=== PATIENT | male | born 1945 | race Caucasian/White ===

== ENCOUNTER → 2024-03-02 08:50 | Outpatient (REF) | payer MEDICARE, OTHER, SELFPAY ==
[2024-03-02 10:09] LABS: Urine Albumin Negative (Neg - Trace); Urine Bilirubin Negative (Negative); Urine Character Clear (Clear); Urine Color Yellow; Urine Glucose Negative (Negative); Urine Ketone 1+ (Negative); Urine Leukocyte Trace (Negative); Urine Nitrite Negative (Negative); Urine Occult Blood Negative (Negative); Urine Urobilinogen Negative (Neg - 1+)
[2024-03-02 10:13] LABS: % Immature Granulocytes 0.3 % (0-0.5); % Lymphocytes 21.2 % (20.5-51.1); % Monocytes 11.7 % (1.7-9.3); % Neutrophils 60.8 % (42.2-75.2); Absolute Basophils 0.1 10^3/uL (0-0.2); Absolute Eosinophils 0.3 10^3/uL (0-0.7); Absolute Lymphocytes 1.3 10^3/uL (1.2-3.4); Absolute Monocytes 0.7 10^3/uL (0.1-0.6); Absolute Neutrophils 3.7 10^3/uL (1.4-6.5); Hematocrit 42.8 % (39.0-52.0); Hemoglobin 15.1 g/dL (13.0-18.0); Mean Corp Hgb Conc. 35.3 g/dL (33.0-37.0); Mean Corpuscular Hgb 32.3 pg (27.0-31.0); Mean Corpuscular Volume 91.5 fL (80.0-94.0); Mean Platelet Volume 10.4 fL (7.4-10.4); Nucleated Red Blood Cells % 0 % (-); Platelet Count 195 10^3/uL (130-400); Red Blood Cell Count 4.68 10^6/uL (4.70-6.10); Red Cell Dist. Width 13.7 % (11.5-14.5)
[2024-03-02 10:42] LABS: ALT (SGPT) 14 U/L (0-50); AST (SGOT) 24 U/L (17-59); Albumin 4.3 g/dl (3.5-5.0); Alkaline Phosphatase 95 U/L (38-126); Blood Urea Nitrogen 17 mg/dl (9-20); Calcium 9.4 mg/dl (8.4-10.2); Carbon Dioxide 26 mmol/L (22-30); Chloride 107 mmol/L (98-107); Glucose 80 mg/dl (70-99); HDL Cholesterol 66 mg/dl; LDL Cholesterol, Calculated 87 mg/dl; Potassium 4.1 mmol/L (3.5-5.1); Sodium 142 mmol/L (135-145); Total Bilirubin 0.6 mg/dl (0.2-1.3); Total Cholesterol 166 mg/dl (50-199); Total Protein 7.1 g/dl (6.3-8.2); Triglyceride 69 mg/dl (10-149); Very Low Density Lipoprotein 13 mg/dl (0-30); eGFR > 60.00
[2024-03-02 11:07] LABS: Urine Mucus Many
[2024-03-02 11:10] LABS: Urine Amorphous Seen; Urine Red Blood Cell 0-2 /HPF (0-2); Urine Squamous Cell 0-2 /LPF (Few)
[2024-03-03 17:36] LABS: PSA Total 14.1 ng/mL (0.0-4.0)
== END ==
LOC: REG 08:50
PROVIDERS: ATTENDING PHYSICIAN Internal Medicine
DX: I10 Essential (primary) hypertension (principal); Z86.010 Personal history of colon polyps; N40.0 Benign prostatic hyperplasia without lower urinary tract symptoms; M15.9 Polyosteoarthritis, unspecified; M51.36 Other intervertebral disc degeneration, lumbar region
CPT/HCPCS: 36415; 80053; 80061; 81003; 81015; 84153; 84154; 85025

== ENCOUNTER 2025-08-16 01:58 | Inpatient (IN) | payer MEDICARE, OTHER, SELFPAY ==
[2025-08-15 19:02] VITALS: BP 110/82
[2025-08-15 19:22] LABS: Hematocrit 37.2 % (39.0-52.0); Hemoglobin 12.4 g/dL (13.0-18.0); Mean Corp Hgb Conc. 33.3 g/dL (33.0-37.0); Mean Corpuscular Volume 94.7 fL (80.0-94.0); Nucleated Red Blood Cells % 0 % (-); Platelet Count 252 10^3/uL (130-400); Red Cell Dist. Width 16.2 % (11.5-14.5)
[2025-08-15 19:43] LABS: ALT (SGPT) 16 U/L (0-50); AST (SGOT) 84 U/L (17-59); Albumin 4.1 g/dl (3.5-5.0); Alkaline Phosphatase 931 U/L (38-126); Blood Urea Nitrogen 19 mg/dl (9-20); Calcium 9.4 mg/dl (8.4-10.2); Carbon Dioxide 26 mmol/L (22-30); Chloride 102 mmol/L (98-107); Glucose 108 mg/dl (70-99); Potassium 4.3 mmol/L (3.5-5.1); Sodium 133 mmol/L (135-145); Total Protein 6.9 g/dl (6.3-8.2); eGFR > 60.00
[2025-08-15 19:55] LABS: Troponin I 0.021 ng/ml
[2025-08-15 22:11] VITALS: BMI 23.1
[2025-08-15 22:30] VITALS: BP 136/90
[2025-08-15 22:59] LABS: Magnesium 1.8 mg/dl (1.6-2.3)
[2025-08-15 23:00] VITALS: BP 168/78
--- NOTE | 2025-08-15 23:02 | ED.GENMED ---
History of Present Illness
General
Chief Complaint: Chest Pain
Source: patient and family (Sister at bedside)
Exam Limitations: none
Time Seen by Provider: 08/15/25 22:39
Nursing documentation reviewed up to this point in time: agreed with
History of Present Illness
History of Present Illness:
HISTORY OF PRESENT ILLNESS
The patient is an 80-year-old male with a history of prostate cancer diagnosed last year. Initially restricted to the prostate, the cancer has metastasized to the bones over the past four months, as confirmed by a PET scan. He started a new
medication, Orgovyx, about a month ago. The patient reported persistent shortness of breath that has been unchanged over the past few weeks, progressing on exertion. He also notes lower substernal chest pain that began a week ago, progressive and
much more persistent since yesterday. He reported low back pain that he associates with the cancer and describes it as diffuse. He has also experienced episodes of dizziness, particularly noticeable when climbing stairs, and reported a recent
instance of lightheadedness. There are no palpitations or history of atrial fibrillation before this visit. An EKG was performed, revealing the presence of atrial fibrillation with rapid ventricular response 110. The patient also mentioned a driving
trip to [place] and back (approximately [address]) recently, with no reported leg pain or swelling. He travels back and forth to [place] twice weekly. Works here locally 4 days a week then returns home to [place] every for the
weekend.
He follows with a cancer specialist in [facility].
He underwent local radiation treatments to his prostate last year.
He has history of hypertension, maintained on losartan/HCTZ 50/12.5, recently decreased to 1/2 tablet daily. He is also maintained on amlodipine metoprolol succinate 100 mg daily. Once daily, he believes 5 mg. He takes tramadol as needed for back
pain.
He has been chewing caffeinated gum this past week in an effort to improve his fatigue. Thus far has been ineffective.
He has not had a cough. No fevers or chills. No abdominal pain, no nausea or vomiting, no diarrhea or constipation.
Past History
Past History
ED Past Medical History: Cancer (Prostate cancer, diagnosed 2023, metastatic to bone since April 2025 prostate cancer treated with 28 days of local radiation), GERD and HTN
ED Past Surgical History: Orthopedic (Bilateral knee replacements) and Tonsilectomy
Social History
Tobacco: Non-smoker
Alcohol: None
Drug: None
Personal:
Living: alone
Employment: Employed (Continues to work part-time)
Family History
Family History: Other (Noncontributory)
Phy Exam
Physical Exam
Physical Exam:
GENERAL: 80-year-old gentleman appears his stated age, bright and alert, pleasant, quite chatty, amicable and appears in no acute distress. He is accompanied by his sister.
EYE: pupils equal and reactive
NECK: Supple, no significant adenopathy.
ENT: o/p clr, mmm.
CARDIAC: Irregularly irregular, tachycardic
LUNGS: no acute respiratory distress, scant rales at bases otherwise clear to auscultation.
ABDOMEN: Soft, without focal tenderness, no r/g, no cvat
NEUROLOGICAL: Alert and oriented, no focal neuro deficits
SKIN: Warm and dry, skin intact.
MUSCULOSKELETAL: No edema, well perfused.
PSYCH: Normal and appropriate interaction.
Scores
Heart Score for Chest Pain Patients
STEMI patient?: No
History: Slightly or Non-Suspicious
ECG: Nonspecific Repolarization
Age: >/= 65 years
Risk Factors: 1 or 2 Risk Factors
Troponin: </= Normal Limit
Heart Score for Chest Pain Patients: 4
Heart Score Risk: 20.3% MACE over next 6 weeks
Course
Orders/Labs/Results
Orders:
Orders
08/15/25 18:52
Electrocardiogram (*1) Urgent
Reason for Study: Chest Pain
EKG- Treatment ONCE
08/15/25 19:07
Cardiac Monitoring- Treatment ONCE
IV Insert/Care/Rem.- Treatment PRN
O2 Therapy [RESP] Urgent
Titrate/Wean O2 to maintain O2 sat greater than (%): 90
Special Instructions: Maintain sats >/=90%
Pulse Ox/spot Check [RESP] Urgent
Quantity: 1
Special Instructions: ON ROOM AIR
08/15/25 19:12
Complete Blood Count/With Diff Urgent
Comprehensive Metabolic Panel Urgent
Magnesium Urgent
Comment: ADD ON
NT-proBNP Urgent
Comment: ADD ON
TSH Reflex To Free T4 Urgent
Comment: ADD ON
Troponin I Urgent
08/15/25 22:04
Add On- LAB Urgent
Tests Added?: BNP, TSH w reflex to free T-4
08/15/25 22:41
Add On- LAB Urgent
Tests Added?: Mg
08/15/25 22:55
Electrocardiogram (*1) Urgent
Reason for Study: Chest Pain
08/15/25 22:56
EKG- Treatment ONCE
PTT Urgent
Troponin I Urgent
08/15/25 23:02
CT Chest PE Study Urgent
Comment:
Reason For Exam: CP, SOB x 1 week, tachycardia
08/16/25 00:28
Metoprolol [Lopressor] 5 mg IV NOW STA
08/16/25 00:59
Heparin 4,000 units IV NOW STA
Nursing to Place Non Medication Order As Directed
Physician Order: PTT 6 hours after initial start of Heparin infusion
Above order entered?: Yes
08/16/25 01:00
Heparin 88529 Units/250 ml 25,000 units in 250 ml IV PER PROTOCOL
Weight to be used for heparin protocol in kilograms (kg):: 75
Protocol:: Cardiac Tx/Acute Coronary
PTT Goal Range to be used:: PTT 73 to 111 seconds
Order type:: Initial
INITIAL Infusion Dose (UNITS/KG/hr) & then follow protocol:: 12 units/kg/hr
Infusion Dose in UNITS/hr & then follow protocol (UNITS/hr):: 900
INFUSION RATE in mL/hr & then follow protocol (mL/hr):: 9
PTT less than or equal to 64 seconds:: Increase rate by 200 units/hr (+ 2 mL/hr)
PTT 64.1 to 72.9 seconds:: Increase rate by 100 units/hr (+ 1 mL/hr)
PTT 73 to 111 seconds:: Target Range. No change in rate.
PTT 111.1 to 130.9 seconds:: Decrease rate by 100 units/hr (- 1 mL/hr)
PTT 131 to 199.9 seconds:: HOLD for 1 hr. Then decrease rate by 200 units/hr (- 2 mL/hr)
PTT greater than or equal to 200 seconds:: HOLD for 2 hrs & Notify Provider. Then decrease by 200 units/hr (-
2 mL/hr)
Lab follow-up:: Each change, PTT q6h until 2 consecutive are therapeutic. Then PTT
daily.
Pharmacy Request to Place See Dose Instructions IV DIRECTED
08/16/25 01:34
Admit/Transfer Patient As Directed
Co-Sign Provider:
Level of Care: Inpatient admission
Assign to:: IVU
Physician / Group: Hao
Diagnosis: A-Fib, Ventricular Arrhythmia
Reason for Hospitalization: A-Fib, Ventricular Arrhythmia
Expected length of stay greater than two midnights?: Yes
ELOS- Estimated Length of Stay in days: 3
I certify the patient meets the requirements for IP care: Yes
PRN Pain Medication Management As Directed
May give lesser potent ordered pain med per pt: Yes
preference::
Protocol:: Medication orders for pain may be administered in a
manner that supports deferring to patient preference
when the pt is:
- Requesting an ordered lesser potent pain medication.
Least to most potent pain medications are defined
as: acetaminophen < NSAID < tramadol < opioids
(morphine, oxycodone, hydromorphone).
- Requesting a lesser dose of the same medication IF
ORDERED.
- Requesting a less intrusive route of administration
if both routes are prescribed by the provider (PO <
IV).
08/16/25 01:35
Code Status As Directed
Resuscitation Status: Full Code
08/16/25 01:38
Metoprolol Xl [Toprol Xl] 50 mg PO NOW STA
08/16/25 02:37
HYDROmorphone [Dilaudid] 0.5 mg IV Q4HPRN PRN
08/16/25 02:37
Echo 2D MMode Doppler [Echo 2D MMode Color/Doppler] Routine
Reason for Study: Arrhythmia
CARDIOLOGY CONSULT Routine
Consulting Provider: J Luis Mayer
Was physician already notified: Yes
Reason for consult: A-Fib, Ventricular Arrhythmia
Heparin Protocol- PTT Orders As Directed
PTT per Heparin protocol: -Obtain CBC and baseline PTT - if not already collected.
-Obtain PTT 6 hours from start of infusion. Then, every 6 hours until 2 consecutive
PTT's are therapeutic. Then, PTT Daily.
-With each rate change, obtain PTT every 6 hours until 2 consecutive PTT's are
therapeutic. Then, PTT Daily.
Activity As Directed
Activity Level: Ambulate
With Assistance
Bladder Scan As Directed
Follow Bladder Retention/Intermittent Cath Algorithm?: Yes
PRN if no void in __ hours: 6
Frequency: Per Retention Algorithm
If Bladder Scan Result >: 400
then:: Straight cath
EKG with chest pain [ECG as needed] As Directed
ECG as needed for:: Chest Pain
I/O [Intake/ Output] As Directed
Frequency: Per unit guidelines
Notify MD As Directed
Notify physician if: PTT is greater than or equal to 200.
Straight Cath As Directed
Frequency: Per Retention Algorithm
Additional Instructions: straight cath as needed per acute urinary retention algorithm for 24 hrs
Additional Instructions: for bladder scan greater than 400 mL
Vital Signs As Directed
Frequency: Per unit guidelines
Weight As Directed
Frequency: Daily
Oxygen Therapy [O2 Therapy] [RESP] Routine
Titrate/Wean O2 to maintain O2 sat greater than (%): 94
Ot Eval And Treat Routine
PT Consult [Pt Eval And Treat] Routine
Activity Level: Ambulate
With Assistance
08/16/25 05:14
Basic Metabolic Panel IN AM
Cardiovascular Evaluation IN AM
08/16/25 06:00
EKG [Electrocardiogram (*1)] IN AM
Reason for Study: Chest Pain
NPO
Allow oral meds: Yes
Allow clear liquids: Sips of Clears
08/16/25 08:00
Acetaminophen [Tylenol] 1,000 mg PO TID
Aspirin Chewable [Low Strength Aspirin] 81 mg PO DAILY
Losartan [Cozaar] 25 mg PO DAILY
Metoprolol Xl [Toprol Xl] 50 mg PO BID
Pantoprazole [Protonix] 40 mg PO DAILY
08/18/25 06:00
Complete Blood Count/No Diff Q2D
Comment: notify provider: Platelet count < 130,000 or decrease by 50% from baseline
08/20/25 06:00
Complete Blood Count/No Diff Q2D
Comment: notify provider: Platelet count < 130,000 or decrease by 50% from baseline
08/22/25 06:00
Complete Blood Count/No Diff Q2D
Comment: notify provider: Platelet count < 130,000 or decrease by 50% from baseline
08/24/25 06:00
Complete Blood Count/No Diff Q2D
Comment: notify provider: Platelet count < 130,000 or decrease by 50% from baseline
08/26/25 06:00
Complete Blood Count/No Diff Q2D
Comment: notify provider: Platelet count < 130,000 or decrease by 50% from baseline
08/28/25 06:00
Complete Blood Count/No Diff Q2D
Comment: notify provider: Platelet count < 130,000 or decrease by 50% from baseline
08/30/25 06:00
Complete Blood Count/No Diff Q2D
Comment: notify provider: Platelet count < 130,000 or decrease by 50% from baseline
09/01/25 06:00
Complete Blood Count/No Diff Q2D
Comment: notify provider: Platelet count < 130,000 or decrease by 50% from baseline
Abnormal Lab Results
08/15/25
19:12
RBC 3.93 L 10^6/uL
(4.70-6.10)
Hgb 12.4 L g/dL
(13.0-18.0)
Hct 37.2 L %
(39.0-52.0)
MCV 94.7 H fL
(80.0-94.0)
MCH 31.6 H pg
(27.0-31.0)
RDW 16.2 H %
(11.5-14.5)
Abs Immat Gran (auto) 0.1 H 10^3/uL
(0-0.05)
Absolute Neuts (auto) 6.6 H 10^3/uL
(1.4-6.5)
Absolute Lymphs (auto) 0.5 L 10^3/uL
(1.2-3.4)
Absolute Monos (auto) 0.7 H 10^3/uL
(0.1-0.6)
Immature Gran % 1.0 H %
(0-0.5)
Neutrophils % 82.4 H %
(42.2-75.2)
Lymphocytes % 6.2 L %
(20.5-51.1)
Sodium 133 L mmol/L
(135-145)
Glucose 108 H mg/dl
(70-99)
AST 84 H U/L
(17-59)
Alkaline Phosphatase 931 H U/L
(38-126)
08/15/25 19:12
08/15/25 19:12
Vital Signs
Initial and Last Documented VS:
Initial Vital Signs
Temp Pulse Resp BP Pulse Ox
97.6 F 128 18 110/82 98
08/15/25 19:02 08/15/25 19:02 08/15/25 19:02 08/15/25 19:02 08/15/25 19:02
Last Documented Vital Signs
Temp Pulse Resp BP Pulse Ox
99 F 84 17 119/58 94
08/16/25 07:25 08/16/25 06:00 08/16/25 06:00 08/16/25 06:00 08/16/25 06:00
MDM/Problems Addressed
Differential Diagnosis Includes:
DIFFERENTIAL DIAGNOSIS
The Differential Diagnosis includes, in no particular order and is not limited to:
1. Pulmonary embolism
2. Heart failure
3. Ischemic heart disease
4. Metastatic bone pain
5. Atypical pneumonia
6. Chronic obstructive pulmonary disease exacerbation
7. Anemia
8. Thyroid dysfunction
9. Medication side effects
10. Deconditioning
MDM/Problems Addressed:
Chest pain, shortness of breath, fatigue all ongoing for at least a week perhaps longer.
EKG shows atrial fibrillation with rapid ventricular response in the lower 100s. No acute ST-T wave abnormalities.
ekg monitor tech continues to show A-fib as well as 1 episode of wide-complex tachycardia at a rate of 145 that lasted approximately 5 seconds. Concerning for V. tach. Patient remained asymptomatic during this episode.
As he has had no palpitations, at this point unclear as to onset of A-fib. Could certainly have started a week or more ago.
Recently started Orgovyx a gonadotropin releasing hormone receptor antagonist. Concern for adverse reaction to this medication.
With frequent lengthy car travel, fatigue, shortness of breath, tachycardia, must certainly consider PE thus we will check CT of the chest/PE study.
Will add BNP, thyroid function, magnesium.
Will plan to repeat troponin. Thus far within normal limits.
Patient remains hemodynamically stable. Nothing in history nor exam to suggest infectious process.
Labs are remarkable for mild anemia, moderately elevated alkaline phosphatase and mildly elevated AST. Likely related to bony metastatic disease/prostate cancer.
Chronic conditions affecting care: HTN and Cancer (Prostate cancer metastatic to bone)
*Radiology
Radiology exam reviewed: radiology read reviewed
*Pulse Oximetry
SaO2: 97
Oxygen Mode of Delivery: Room air
Patient hypoxic: no
*EKG
Interpreted by ED Provider?: Yes
Interpretation: abnormal
Comparison EKG: no comparison EKG present
Rate: tachycardiac
Rhythm: a-fib
[place]: normal axis
Interval: normal QT interval
QRS Pattern: normal QRS
Ischemia: non-specific ST changes
*Form Builder Helper Interpretation
Rate: tachycardiac
Interpretation: abnormal
Rhythm: a-fib
*Critical Care Note
Total Time (30-74mins, 75-104mins- exclusive of procedures): 20
comment:
Critical care statement: A total of 20 minutes of critical care time was provided for this patient. This includes management of unstable vital signs, evaluation of the patient at bedside, reviewing the patient's pertinent medical records, discussion
with consultants, review of old EKGs and review of pertinent medical records. This time with separate from time utilized to perform the aforementioned documented procedures
Update Note
Update Note:
01:30
Patient had another episode of wide-complex tacky arrhythmia lasting approximately 1 minute. Remains asymptomatic.
Has since converted back to atrial fibrillation with rate 100-110.
[address] CT the chest results.
BNP elevated at 1300. Repeat troponin remains unchanged. Negative. Magnesium is normal at 1.8. TSH is normal 1.46.
He now tells me he has not taken his metoprolol since Wednesday. With tachyarrhythmia, A-fib RVR, will give an IV dose of Lopressor.
Due to persistent A-fib with unknown onset, intermittent tachyarrhythmia patient will require acute hospitalization for further evaluation. Will touch base with cardiology regarding tacky arrhythmia.
ED Attending Note
-
Portions of this chart may have been created with voice recognition software.� Occasional wrong word or��sound alike� substitutions may have occurred due to the inherent limitations of voice recognition software.
Discharge Plan
Departure
Patient Disposition: Admit
Date of Disposition: 08/16/25
Time of Disposition: 00:55
Admit to: Telemetry
Admit to doctor: Hao
Presentation/result/management discussed w/ accepting MD/DO: Hospitalist
Condition: Serious
Discharge Problem:
New onset A-fib with RVR, Wide-complex tachyarrhythmia, Malignant neoplasm of prostate metastatic to bone, Pleural effusion, bilateral
Interventions
Interventions:
*Risk Screen - Suicide Last Done: 08/15/25 19:02
*General Assessment Last Done: 08/15/25 22:12
*Neglect/Abuse Screening Last Done: 08/15/25 19:02
*ED COVID-19 Vaccine History Last Done: 08/15/25 22:12
*ED Influenza Vaccine History Last Done: 08/15/25 22:12
[facility] Fall Risk Assessment Tool Last Done: 08/15/25 22:11
*Nursing Disposition Last Done: 08/16/25 02:47
ED- Cardiac Assessment Last Done: 08/15/25 22:13
Discharge Date and Time
Discharge Date/Time: 08/16/25 02:48
[2025-08-15 23:26] LABS: Troponin I 0.022 ng/ml
[2025-08-15 23:36] LABS: APTT 32.0 Sec (23.4-35.0)
[2025-08-15 23:45] VITALS: BP 147/99
[2025-08-16] VITALS (19 sets, daily range): BP systolic 102–145; BP diastolic 50–85; PULSE 78; O2SAT 98; BMI 22.6
[2025-08-16] MEDS: LOPRESSOR 5 MG IV (00:41)
[2025-08-16] MEDS: HEPARIN 4000 UNITS IV (01:18)
[2025-08-16] MEDS: HEPARIN 25000 UNITS/250 ML IV (01:23)
--- NOTE | 2025-08-16 01:38 | HPS.HSE ---
Family Physician
-
Family Physician: [facility]
Chief Complaint
-
Chest Pain
History of Present Illness
Patient is an 80y M with PMH significant for hypertension and prostate cancer who presents to ED complaining of chest pain. Patient reports pain across the lower chest / upper abdomen that has been present off-and-on for about 2 weeks. He
reports recent episodes of heartburn / GERD that have been triggered by NSAID or alcohol use - but current symptoms do not feel the same. He has associated SOB. The pain radiates at times into the low back and the neck. No arm discomfort or
numbness. No nausea. No diaphoresis. No personal history of heart disease, HI, stroke.
Patient was started on Orgovyx about one month ago for metastatic prostate cancer.
No other new medications.
In the ED, patient is noted to be in A-Fib with radpi ventricular response. His rate improved significantly after a single mishra of IV Lopressor.
In addition, he has had a few episodes on monitor of ventricular tachycardia with rate around 150bpm and lasting 10-15 seconds. Patient is entirely asymptomatic during these episodes with no palpitations, lightheadedness or change in chest pain /
dyspnea.
Medical History
Past Medical History
Past Medical History: Reports Other
Additional Past Medical History:
Metastatic Prostate Cancer
Hypertension
Gout
GERD
Past Surgical History: Reports Other
Additional Past Surgical History:
Bilateral TKA
T&A
Social History
Tobacco: Other (Occasional cigar. No h/o cigarette smoking.)
Alcohol: Occasional
Drug: None
Family History
Family History: Not pertinent
Allergies / Home Medications
Allergies reflects when Allergies were last updated in [facility].
Home Medications with original date entered in [facility]
Allergy/Medication List:
Allergies
Allergy/AdvReac Type Severity Reaction Status Date / Time
No Known Allergies Allergy Unverified 06/02/11 08:10
Home Medications
amlodipine 5 mg tablet 5 mg PO DAILY 08/16/25
losartan 50 mg-hydrochlorothiazide 12.5 mg tablet 0.5 tab PO DAILY 08/16/25
metoprolol succinate 100 mg tablet,extended release 24 hr 100 mg PO DAILY 08/16/25
Review of Systems
-
History Source: Patient
A 12 point ROS was completed and negative except as noted: Yes
Constitutional: Reports Fatigue; Denies Fever or Chills
Respiratory: Reports Trouble Breathing; Denies Cough
Cardiac: Reports Chest Pain; Denies Diaphoresis, Palpitations or Syncope
Abdomen/GI: Reports Abdominal Pain; Denies Nausea, Vomiting or Diarrhea
: Denies Dysuria or Frequency
Musculoskeletal: Reports Joint Pain (chronic R shoulder pain); Denies Edema
Neurological: Denies Dizzy or Headache
Psych: Denies Depression or Anxiety
Physical Exam
Vital Signs
Vital Signs
Temp Pulse Resp BP Pulse Ox
97.6 F 109 14 145/65 97
08/15/25 19:02 08/16/25 00:41 08/15/25 23:30 08/16/25 00:41 08/15/25 23:04
Physical Exam
General: Other (80y M in no acute distress.)
HEENT: Moist mucous membranes and PERRLA
Respiratory: Clear; No Wheezes, Rales or Rhonchi
Cardiac: S1/S2, Irregular Rhythm and Tachycardia; No Murmur
GI: Soft, Non Tender, Non Distended and Normal Bowel Sounds
Musculoskeletal: No Clubbing, No Cyanosis, No Edema and Other (Limited ROM R shoulder due to discomfort. Pos effusion on exam. Not tender, no increased warmth / erythema.)
Neuro: AO x 3
Laboratory Results
-
08/15/25 19:12
08/15/25 19:12
Laboratory Results
APTT 32.0 Sec (23.4-35.0) 08/15/25 22:56
Total Bilirubin 0.5 mg/dl (0.2-1.3) 08/15/25 19:12
AST 84 U/L (17-59) H 08/15/25 19:12
ALT 16 U/L (0-50) 08/15/25 19:12
Alkaline Phosphatase 931 U/L (38-126) H 08/15/25 19:12
Troponin I 0.022 ng/ml 08/15/25 22:56
Impression/Plan
-
A/P: Patient is an 80y M with PMH significant for hypertension and prostate cancer who presents to ED complaining of chest pain.
Atrial Fibrillation - New
Ventricular Tachycardia
Chest Pain
- Admit to IVU for further evaluation and treatment.
- Heart rates much improved after IV Lopressor x 1.
- PO Toprol now and then continue BID with parameters.
- Continue IV heparin for stroke risk reduction.
- Monitor on telemetry for any additional episodes of ventricular arrhythmia.
- Echo. Cardiology evaluation.
- Hold any further doses of Orgovyx which can cause QT prolongation, arrhythmia, etc.
- EKG without evident acute ischemia.
- Follow troponin to peak. Monitor for any new / worsening symptoms.
Benign Hypertension
- Continue metoprolol and adjust dose as needed for heart rate and BP control.
- Hold HCTZ and amlodipine acutely.
- Continue losartan.
Metastatic Prostate Cancer
- Hold Orgovyx as noted above.
- Followed primarily by his Oncologist in [place].
- Continue efforts at pain control with known bony metastases.
GERD
- Some recent symptoms certainly c/w GERD.
- PPI daily. Follow for changes in symptoms.
DVT Prophylaxis: On IV Heparin
Code Status: Full
[2025-08-16] MEDS: TOPROL XL 50 MG PO ×2 (02:22→08:20)
[2025-08-16 05:57] LABS: Troponin I 0.023 ng/ml
[2025-08-16 06:01] LABS: Blood Urea Nitrogen 14 mg/dl (9-20); Calcium 9.2 mg/dl (8.4-10.2); Carbon Dioxide 27 mmol/L (22-30); Chloride 106 mmol/L (98-107); Estimated Creatinine Clearance 99 ml/min; Glucose 103 mg/dl (70-99); HDL Cholesterol 49 mg/dl; LDL Cholesterol, Calculated 92 mg/dl; Potassium 3.9 mmol/L (3.5-5.1); Sodium 135 mmol/L (135-145); Very Low Density Lipoprotein 13 mg/dl (0-30); eGFR > 60.00
--- NOTE | 2025-08-16 07:07 | W.PN.HOSP.TC ---
Today's Communication/Plan
-
See plan
Assessment / Plan
Assessment / Plan
Physical Exam
General: Not in acute distress
HEENT: Moist mucous membranes
Respiratory: Clear to Auscultation Bilaterally
Cardiac: S1/S2, Irregular Rhythm
GI: Soft, Non Tender, Non Distended and Normal Bowel Sounds
Musculoskeletal: No Cyanosis, No Edema and Other (Limited ROM R shoulder due to discomfort. Pos effusion on exam. Not tender, no increased warmth / erythema.)
Neuro: AAO x 3
Assessment/Plan
80y M with PMH significant for hypertension and prostate cancer who presents to ED complaining of chest pain. Patient reports pain across the lower chest / upper abdomen that has been present off-and-on for about 2 weeks. He reports recent
episodes of heartburn / GERD that have been triggered by NSAID or alcohol use - but current symptoms do not feel the same. He has associated SOB. The pain radiates at times into the low back and the neck. No arm discomfort or numbness. No
nausea. No diaphoresis. No personal history of heart disease, NM, stroke.
Patient was started on Orgovyx about one month ago for metastatic prostate cancer.
No other new medications.
In the ED, patient is noted to be in A-Fib with radpi ventricular response. His rate improved significantly after a single mishra of IV Lopressor.
In addition, he has had a few episodes on monitor of ventricular tachycardia with rate around 150bpm and lasting 10-15 seconds. Patient is entirely asymptomatic during these episodes with no palpitations, lightheadedness or change in chest pain /
dyspnea.
SIGN-OUT: Alberto Mares 80y M with chest pain and new A-Fib and episodes of V-Tach (asymptomatic). Started new prostate cancer med (Orgovyx) one month ago - held. IV heparin. PO beta-blockers. Echo. Cardio consulted.
Patient is an 80y M with PMH significant for hypertension and prostate cancer who presents to ED complaining of chest pain.
Presentation with 2 weeks of fatigue and shortness of breath with pain in the upper abdominal area
Paroxysmal Atrial Fibrillation with Rapid Ventricular Response
Ventricular Tachycardia
Chest Pain
- Patient pays florez for drugs
- Heart rates much improved after IV Lopressor x 1.
- PO Toprol -- increased for rate control
- Continue IV heparin for stroke risk reduction -- transition to Pradaxa as per cardiology
- Monitor on telemetry for any additional episodes of ventricular arrhythmia.
- Echocardiogram showed normal biventricular size and systolic function with aortic sclerosis and mild to moderate aortic regurgitation, mild to moderate mitral valve regurgitation. In subcostal views there is echodensity arising from interatrial
septum which may be consistent with significant degree of lipomatous hypertrophy adjacent to a hypermobile septum however myxoma cannot be ruled out.
- Appreciate cardiology
- Hold any further doses of Orgovyx which can cause QT prolongation, arrhythmia, etc.
- EKG without evident acute ischemia.
- Avoid alcohol and NSAIDs
- Outpatient sleep study
Abnormal echocardiogram finding in the right atrium: Likely significant lipomatous hypertrophy however mass like myxoma cannot be ruled out.
-Outpatient cardiac MRI
Aneurysmal dilation ascending aorta, 4.0 cm diameter.
Small right pleural effusion and adjacent atelectasis. Trace left pleural effusion and adjacent atelectasis.
Right middle lobe 3 mm pulmonary nodule.
-Consider follow-up scan in 12 months as below.
Benign Hypertension
- Home Toprol XL increased for rate control of A-Fib
- Hold HCTZ and amlodipine acutely.
- Continue losartan.
Metastatic Prostate Cancer
- Hold Orgovyx as noted above.
- Followed primarily by his Oncologist in [place].
- Continue efforts at pain control with known bony metastases.
- Will consider discussion with inpatient oncology versus patient discussing this with his outpatient oncologist
Sclerotic changes of thoracic vertebral bodies and ribs. This could be related to myelofibrosis or metabolic process. Osseous metastasis not definitively excluded. As warranted, could be further evaluated with bone scan or MRI. There is minimal
probably chronic inferior endplate deformity of T1.
GERD
- Some recent symptoms certainly c/w GERD.
- PPI daily. Follow for changes in symptoms.
DVT Prophylaxis: On IV Heparin
Code Status: Full
This is a non-billable note.
Anticipated Discharge: Within 24 hours
Subjective/Interval History
-
Date of Service: August 16, 2025
Patient was seen and examined. He reported that his symptoms have improved, he is much less short of breath according to him.
Objective Data
-
Labs:
Laboratory Results
08/15/25 08/15/25 08/16/25
19:12 22:56 05:14
WBC 8.0
Hgb 12.4 L
Hct 37.2 L
Plt Count 252
APTT 32.0 Cancelled
Sodium 133 L 135
Potassium 4.3 3.9
Chloride 102 106
Carbon Dioxide 26 27
BUN 19 14
Creatinine 0.7 0.6 L
Glucose 108 H 103 H
Calcium 9.4 9.2
Total Bilirubin 0.5
AST 84 H
ALT 16
Alkaline Phosphatase 931 H
08/16/25
07:30
WBC
Hgb
Hct
Plt Count
APTT Pending
Sodium
Potassium
Chloride
Carbon Dioxide
BUN
Creatinine
Glucose
Calcium
Total Bilirubin
AST
ALT
Alkaline Phosphatase
Vital Signs:
Vital Signs
Temp Pulse Resp BP Pulse Ox
98.0 F 84 17 119/58 94
08/16/25 02:48 08/16/25 06:00 08/16/25 06:00 08/16/25 06:00 08/16/25 06:00
I&O
08/15/25 08/16/25 08/17/25
06:59 06:59 06:59
Intake Total 52 / 52
Output Total 300 / 300
Balance -248 / -248
[2025-08-16 08:19] LABS: APTT 69.7 Sec (23.4-35.0)
[2025-08-16] MEDS: PROTONIX 40 MG PO (08:20)
[2025-08-16] MEDS: LOW STRENGTH ASPIRIN 81 MG PO (08:20)
[2025-08-16] MEDS: COZAAR 25 MG PO (08:21)
[2025-08-16] MEDS: TYLENOL PO (08:21)
--- NOTE | 2025-08-16 09:56 | CON.CAR ---
Addendum entered and electronically signed by Halle Brice MD 08/16/25 14:24:
I saw and evaluated the patient, and I provided the substantive portion of the medical decision making.
I reviewed and agree with the note by Deanne DARDEN and it accurately reflects our care.
I personally performed the medical decision making of the this encounter and my assessment and plan is below:
80-year-old gentleman with a past medical history of metastatic prostate cancer, hypertension and GERD complaining of 2 weeks of fatigue and shortness of breath with pain in the upper abdominal area. On arrival he was noted to be in atrial
fibrillation with rapid ventricular response. With treatment of this, symptoms have resolved. During his hospitalization telemetry to monitor showed he is paroxysmal going in and out of atrial fibrillation. At times when in A-fib, he will have
apparent induction. Currently in A-fib in the 70s to 90s during our conversation and he is feeling fabulous.
He has an irregularly irregular rate and rhythm with a normal S1-S2, lungs are clear to auscultation bilaterally he is or alert and oriented x 3 no lower extremity edema.
EKG shows atrial fibrillation with rapid ventricular response.
Echocardiogram showed normal biventricular size and systolic function with aortic sclerosis and mild to moderate aortic regurgitation, mild to moderate mitral valve regurgitation. In subcostal views there is echodensity arising from interatrial
septum which may be consistent with significant degree of lipomatous hypertrophy adjacent to a hypermobile septum however myxoma cannot be ruled out.
Assessment and plan:
Paroxysmal atrial fibrillation with rapid ventricular response. It seem to have been symptomatic when rapid but now that rate controlled it is asymptomatic. Will continue with rate control. He pays florez for drugs. He is agreeable to PRADAXA I
stressed he must completely avoid alcohol and NSAIDs. He agrees.
Abnormal echocardiogram finding in the right atrium: Likely significant lipomatous hypertrophy however mass like myxoma cannot be ruled out. I discussed approaches to evaluation of this being CMR versus NIYA. CMR is a superior study but would be an
outpatient study. NIYA would be offered tomorrow. He prefers a CMR. Will help arrange this for him. He travels to and from [place] frequently but would like to do that while he is in [place] during the week. We will arrange on discharge.
Hypertension:Beta-raza has been increased for rate control of atrial fibrillation, will need to reconsider his home regimen upon discharge. For now continue current medications of metoprolol 75 twice daily and losartan 25. He had been on
amlodipine 5 but this will be held and less needed.
Findings discussed with Dr. Garrison, will follow. Likely discharge tomorrow.
Original Note:
Consultation
Consultation Request
Date/Time Consultation Requested: 08/16/25236
Date/Time Consultation Performed: 08/16/25954
Requesting Provider: Dr. Bui
Performing Provider: Marge DARDEN for Dr. Brice
Reason for Consultation: Arrhythmia
Medical History
-
History of Present Illness:
80 y/o male with metastatic prostate cancer, hypertension, and GERD (recent treatment with PPI) who is here for evaluation of about 2 weeks of fatigue, SOB, and pain in upper abdominal area. Nothing makes it better or worse. It has been constant in
varying degrees. He denies any palpitations, exertional CP, dizziness, syncope. His family and medical provider in [place] (lives in [place], [place] here) urged him to be evaluated in ER. He was seen to be in AFIB with RVR and was given IV
metoprolol. He is currently in NSR. He was also started on IV heparin. Of note, he was recently started on Orgavx for his metastatic prostate cancer, which is now held.
Past Medical History
Past Medical History: Cancer and HTN
Family History
Family History: Reviewed & Not Pertinent
Allergies / Home Medications
Allergy/AdvReac Type Severity Reaction Status Date / Time
No Known Allergies Allergy Unverified 06/02/11 08:10
�Medication �Instructions �Recorded �Confirmed �Type
amlodipine 5 mg tablet 5 mg PO DAILY 08/16/25 08/16/25 History
losartan 50 mg-hydrochlorothiazide 0.5 tab PO DAILY 08/16/25 08/16/25 History
12.5 mg tablet
metoprolol succinate 100 mg 100 mg PO DAILY 08/16/25 08/16/25 History
tablet,extended release 24 hr
Review of Systems
-
History Source: Patient
All other systems: Negative unless noted
Physical Exam
Vital Signs
Temp Pulse Resp BP Pulse Ox
99 F 84 19 127/67 95
08/16/25 07:25 08/16/25 08:21 08/16/25 08:00 08/16/25 08:21 08/16/25 08:00
Lab Results
08/15/25 19:12
08/16/25 05:14
Troponin I Cancelled 08/16/25 14:37
Aue-D-Kyumuskvfky Pept 1360 pg/ml 08/15/25 19:12
Physical Exam
General: Well Developed, Well Nourished and No Apparent Distress
HEENT: Normocephalic and Anicteric
Cardiac: Regular Rhythm
Musculoskeletal: No Edema
Skin: Warm and Dry
Neuro: AO x 3
Psych: Calm
Impression / Plan
-
Arrhythmia:
-now in SR
-AFIB with RVR noted on arrival, also appears to have aflutter at times to my review, finally there appears to be runs of NSVT versus aberration- will review with Dr. Brice.
-continue metoprolol- will increase dosing- monitor telemetry. Will give K+ and magnesium.
-Echo is pending
-[id number] score is at least 3 for age and HTN. He denies any bleeding or falls. He is on heparin drip, which requires intensive monitoring. Eventual transition to Eliquis 5 mg PO BID- c/s for pricing.
-was on orgovyx for prostate cancer, now held as can contribute to long QTC and arrhythmia. Of note, on my review, amiodarone and orgovyx should be avoided together
HTN:
-stable
-monitor with medicine adjustment
GERD:
-had recent OP treatment with PPI course, PPI added back here
Hx Metastatic prostate cancer:
-was on orgovyx, now held as can contribute to long QTC and arrhythmia
-oncologist is in [place]
Data Reviewed
-
EKG: Tracing Personally Visualized and interpreted (AFIB 106 BPM, PVC, non specific T abnormality)
CT Scan: Report Reviewed by me
Medical Tests (Nuc Med, Echo etc): Other (echo ordered and pending)
Labs: Labs Reviewed by me
--- NOTE | 2025-08-16 10:50 | CM ---
Initial assessment completed with patient who lives in [place] half the time and in [facility] the other half. In [place], patient lives in a 2 story home with no basement, B/B on 1st floor, no steps to enter. Currently patient is staying in a hotel
or at family residences. ANTHROPOMETRIST patient was independent in ADL's and ambulation, drives. No DME. No in-home services. Does have HC-POA. No VA benefits. No psychiatric hospitalizations. PCP in area is Dr. Mt Couch. Pharmacy in area is [facility] in
[place]. Discharge POC: Anticipate no needs.
[2025-08-16 11:55] LABS: Troponin I 0.018 ng/ml
[2025-08-16] MEDS: MAGNESIUM SULFATE 102 GRAMS IV (12:52)
[2025-08-16] MEDS: KCL 40 MEQ PO (12:52)
--- NOTE | 2025-08-16 14:13 | PTCARENOTE ---
Patient appears to be back in A-fib on monitor. was at the bedside and made aware.
[2025-08-16 14:50] LABS: APTT 87.7 Sec (23.4-35.0)
--- NOTE | 2025-08-16 15:22 | PTCARENOTE ---
Received patient from IMU, oriented to room and plan of care. SR on the monitor with 1st degree HB, HR in the 70's. IV heparin infusing at 1000 units/hr, PTT sent which was therapeutic, for repeat at 2030. Resting comfortably, call baez in reach.
--- NOTE | 2025-08-16 16:45 | CM ---
"spoke withpt in room, he is prev indep, lives in a 2 story home with a first floor set up and no steps in [place]. 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 pt was originally from [place], has relocated to be near his daughter "Adams"but travels for the business. he denies any dc planning needs. he has no perscript plan and needs generic meds. plan is for NIYA/CV in am, then dc if medically stable. "
[2025-08-16] MEDS: TYLENOL 1000 MG PO ×2 (16:46→22:24)
[2025-08-16] MEDS: PRADAXA 150 MG PO (20:24)
[2025-08-16] MEDS: TOPROL XL 75 MG PO (20:24)
--- NOTE | 2025-08-16 20:30 | PTCARENOTE ---
Pt. received from day shift, NS on the monitor with PAC'ds but has been going in and out of Afib, also has a first degree HB. VSS, no complaints of pain.
[2025-08-17 04:06] VITALS: BP 122/56
[2025-08-17 04:14] VITALS: BMI 22.4
[2025-08-17 05:05] LABS: Blood Urea Nitrogen 19 mg/dl (9-20); Calcium 8.6 mg/dl (8.4-10.2); Carbon Dioxide 25 mmol/L (22-30); Chloride 108 mmol/L (98-107); Estimated Creatinine Clearance 98 ml/min; Glucose 91 mg/dl (70-99); Magnesium 2.1 mg/dl (1.6-2.3); Potassium 4.1 mmol/L (3.5-5.1); Sodium 134 mmol/L (135-145); eGFR > 60.00
[2025-08-17 07:51] VITALS: BP 104/55
--- NOTE | 2025-08-17 08:12 | W.PN.HOSP.TC ---
Today's Communication/Plan
-
Discharge today
Assessment / Plan
Assessment / Plan
Physical Exam
General: Not in acute distress
HEENT: Moist mucous membranes
Respiratory: Clear to Auscultation Bilaterally
Cardiac: S1/S2, Irregular Rhythm
GI: Soft, Non Tender, Non Distended and Normal Bowel Sounds
Musculoskeletal: No Cyanosis, No Edema
Neuro: AAO x 3
Assessment/Plan
80 y/o male with past medical history significant for hypertension and prostate cancer who presented to [facility] ED complaining of chest pain. Patient reported pain across the lower chest/upper abdomen that has been present off-and-on for about 2
weeks. He reported recent episodes of heartburn/GERD that have been triggered by NSAID or alcohol use - but current symptoms do not feel the same. He has associated shortness of breath. The pain radiates at times into the low back and the neck. No
arm discomfort or numbness. No nausea. No diaphoresis. No personal history of heart disease, SC, stroke.
Patient was started on Orgovyx about one month ago for metastatic prostate cancer.
No other new medications.
In the ED, patient is noted to be in A-Fib with rapid ventricular response. His rate improved significantly after a single mishra of IV Lopressor.
In addition, he has had a few episodes on monitor of ventricular tachycardia with rate around 150bpm and lasting 10-15 seconds. Patient had been entirely asymptomatic during these episodes with no palpitations, lightheadedness or change in chest
pain / dyspnea.

Presentation with 2 weeks of fatigue and shortness of breath with pain in the upper abdominal area
Paroxysmal Atrial Fibrillation with Rapid Ventricular Response
Ventricular Tachycardia
Chest Pain
- Patient pays florez for drugs
- Heart rates much improved after IV Lopressor x 1.
- PO Toprol -- increased for rate control
- Continue IV heparin for stroke risk reduction -- transition to Pradaxa as per cardiology -- for cost reasons, patient will be prescribed Dabigatran 150 mg P.O. BID
- So far no signs of bleeding
- Echocardiogram showed normal biventricular size and systolic function with aortic sclerosis and mild to moderate aortic regurgitation, mild to moderate mitral valve regurgitation. In subcostal views there is echodensity arising from interatrial
septum which may be consistent with significant degree of lipomatous hypertrophy adjacent to a hypermobile septum however myxoma cannot be ruled out.
- Appreciate cardiology
- Hold any further doses of Orgovyx has been held as it can contribute to long QTC and arrhythmia -- Amiodarone and Orgovyx should be avoided together-- patient needs to call his oncologist and talk
about this
- EKG without evident acute ischemia.
- Avoid alcohol and NSAIDs
- Outpatient sleep study
- Recheck CBC and BMP outpatient
Right Shoulder Decreased Range of Motion
-Follow-up outpatient
Abnormal echocardiogram finding in the right atrium: Likely significant lipomatous hypertrophy however mass like myxoma cannot be ruled out.
-Outpatient cardiac MRI
Aneurysmal dilation ascending aorta, 4.0 cm diameter.
Small right pleural effusion and adjacent atelectasis. Trace left pleural effusion and adjacent atelectasis.
Right middle lobe 3 mm pulmonary nodule.
-Consider follow-up scan in 12 months as below.
Benign Hypertension
- Home Toprol XL increased for rate control of A-Fib
- Hold HCTZ and amlodipine acutely.
- Continue losartan.
Metastatic Prostate Cancer
- Hold Orgovyx as noted above -- call oncologist as above
- Followed primarily by his Oncologist in [place].
- Continue efforts at pain control with known bony metastases.
- Will consider discussion with inpatient oncology versus patient discussing this with his outpatient oncologist
Sclerotic changes of thoracic vertebral bodies and ribs. This could be related to myelofibrosis or metabolic process. Osseous metastasis not definitively excluded. As warranted, could be further evaluated with bone scan or MRI. There is minimal
probably chronic inferior endplate deformity of T1.
- Suspected from bony metastases from metastatic prostate cancer
- Patient should share the above findings with his oncologist
GERD
- Some recent symptoms certainly c/w GERD.
- PPI daily. Follow for changes in symptoms.
DVT Prophylaxis: Continue Pradaxa
Code Status: Full Code
More than 30 minutes spent in discharge including
Final examination of the patient
Summarizing hospital stay
Instructions for continuing care to all relevant caregivers
Preparation of discharge records, prescriptions, and referral forms
Total time spent (in minutes): 40
Anticipated Discharge: Today
Subjective/Interval History
-
Date of Service: August 17, 2025
Patient was seen and examined. He denied any chest pain, shortness of breath or any other symptoms or complaints.
Objective Data
-
Labs:
Laboratory Results
08/16/25 08/17/25
20:30 04:13
APTT Cancelled
Sodium 134 L
Potassium 4.1
Chloride 108 H
Carbon Dioxide 25
BUN 19
Creatinine 0.5 L
Glucose 91
Calcium 8.6
Vital Signs:
Vital Signs
Temp Pulse Resp BP Pulse Ox
98.9 F 78 20 104/55 98
08/17/25 07:52 08/17/25 08:00 08/17/25 07:52 08/17/25 07:51 08/17/25 07:52
I&O
08/16/25 08/17/25 08/18/25
06:59 06:59 06:59
Intake Total 200 / 200
Output Total 300 / 300 350 / 350
Balance -248 / -248 -150 / -150
[2025-08-17] MEDS: TOPROL XL 75 MG PO (08:39)
[2025-08-17] MEDS: PRADAXA 150 MG PO (08:39)
--- NOTE | 2025-08-17 08:39 | W.PN.CD ---
Today's Communication / Plan
-
Ok to discharge home on current medications
will arrange for op CMR and follow up
Please call with questions
Impression / Plan
-
Paroxysmal atrial fibrillation with rapid ventricular response.
-AFIB with RVR noted on arrival, at times he has aberration-
-continue metoprolol-symptoms improved with rate control. He is paroxysmal but given now asx will continue with rate control.
-Normal LVEF;
-[id number] score is at least 3 for age and HTN. For cost reasons will use Dabigatran 150mg po bid
-was on orgovyx for prostate cancer, now held as can contribute to long QTC and arrhythmia. Of note, on review, amiodarone and orgovyx should be avoided together
HTN:
-stable
-of note home medications have been adjusted
Valve disease:
-mild to mod AR
-mild to mod MR
-follow over time
Abnormal echocardiogram finding in the right atrium:
-Likely significant lipomatous hypertrophy however mass like myxoma cannot be ruled out. I discussed approaches to evaluation of this being CMR versus NIYA. CMR is a superior study but would be an outpatient study. Inpatient NIYA also offered.
He prefers a CMR. Will help arrange this for him on discharge. He travels to and from [place] frequently but would like to do that while he is in [place] during the week.
GERD:
-had recent OP treatment with PPI course, PPI added back here
Hx Metastatic prostate cancer:
-was on orgovyx, now held as can contribute to long QTC and arrhythmia
-oncologist is in [place]
Physical Exam
Vital Signs/Labs
Vital Signs
Temp Pulse Resp BP Pulse Ox
98.9 F 78 20 104/55 98
08/17/25 07:52 08/17/25 08:00 08/17/25 07:52 08/17/25 07:51 08/17/25 07:52
08/16/25 08/17/25 08/18/25
06:59 06:59 06:59
Actual Weight 162 lb 4 oz 160 lb 4.417 oz
08/15/25 19:12
08/17/25 04:13
APTT Cancelled 08/16/25 20:30
Magnesium 2.1 mg/dl (1.6-2.3) 08/17/25 04:13
Triglycerides 66 mg/dl (10-149) 08/16/25 05:14
LDL Cholesterol, Calc 92 mg/dl 08/16/25 05:14
VLDL Cholesterol, Calc 13 mg/dl (0-30) 08/16/25 05:14
HDL Cholesterol 49 mg/dl 08/16/25 05:14
08/15/25
19:12
Moa-N-Jbtmvmjnahy Pept 1360
LAB Results
08/15/25 08/15/25 08/16/25
19:12 22:56 02:37
Troponin I 0.021 0.022 Cancelled
08/16/25 08/16/25 08/16/25
05:14 08:37 11:19
Troponin I 0.023 Cancelled 0.018
08/16/25 08/16/25
14:37 17:00
Troponin I Cancelled Cancelled
Physical Exam
Constitutional: No acute distress
Cardiovascular: Rhythm & rate is regular, Pedal edema is absent, JVD pressure is normal, Systolic murmur absent and Diastolic murmur absent
Respiratory: Respiratory effort normal, Lungs clear to auscul., Wheeze Absent, Crackles Absent and Rhonchi Absent
Neuro/Psych: AO x 3
Data Reviewed
-
Date of Service: August 17, 2025
Medical Decision Making: Review of Case with other Provider (Dr Meli scott for dischage)
[2025-08-17] MEDS: TYLENOL 1000 MG PO ×2 (08:40→16:08)
[2025-08-17] MEDS: PROTONIX 40 MG PO (08:40)
[2025-08-17 12:12] VITALS: BP 118/55
--- NOTE | 2025-08-17 13:22 | PTCARENOTE ---
Assumed care of the pt @ 0700. Pt is AAOx3 SR with 1st degree AVB with brief periods of A Fib on the tr. Denies CP independent in the room and call baez with reach. Plan for discharge this afternoon.
[2025-08-17 16:07] VITALS: BP 141/64
[2025-08-17] MEDS: COZAAR 25 MG PO (16:08)
--- NOTE | 2025-08-17 16:45 | PTCARENOTE ---
Pt was discharged to home with family. Discharge instructions provided and pt verbalized understanding. A copy of chart sent home with pt for his [place] primary dr. Prior to leaving piv and environmental monitoring specialist were removed. Pt was escorted out with staff
via wheelchair and sister waiting outside lobby.
--- NOTE | 2025-08-20 12:22 | W.DCSUMMARY ---
Discharge Summary
Discharge Data
Date of Admission: 08/16/25
Date of Discharge: 08/17/25
Total time spent discharging patient (in min): 40
-
Pending Results: No
Hospital Course
80 y/o male with past medical history significant for hypertension, GERD and metastatic prostate cancer who presented to [facility] emergency room, complaining of upper abdominal pain, fatigue and upper abdominal pain. He was found to have atrial
fibrillation with rapid ventricular response. The atrial fibrillation was found to be symptomatic when rapid but after patient's atrial fibrillation rate was controlled, symptoms resolved. Patient was noted to pay florez for drugs, and patient was
agreeable to PRADAXA, and it was stressed he must completely avoid alcohol and NSAIDs, and patient was agreeable with this plan. Patient's echo showed abnormal echocardiogram finding in the right atrium, likely significant lipomatous hypertrophy
however mass like myxoma cannot be ruled out and he agreed to CMR imaging outpatient, his beta raza was increased for rate control. Patient was noted to be on Orgovyx for prostate cancer -- but this was held as it could contribute to long QTC and
arrhythmia. Patient was feeling well and stable for discharge.
Discharge Plan
-
Patient Disposition: Home (Routine Discharge)
Discharge Diagnosis/Procedures: Presentation with 2 weeks of fatigue and shortness of breath with pain in the upper abdominal area
Paroxysmal Atrial Fibrillation with Rapid Ventricular Response
Ventricular Tachycardia
Chest Pain
Right Shoulder Decreased Range of Motion
Abnormal echocardiogram finding in the right atrium: Likely significant lipomatous hypertrophy however mass like myxoma cannot be ruled out.
Aneurysmal dilation ascending aorta, 4.0 cm diameter.
Small right pleural effusion and adjacent atelectasis. Trace left pleural effusion and adjacent atelectasis.
Right middle lobe 3 mm pulmonary nodule.
Benign Hypertension
Metastatic Prostate Cancer
Sclerotic changes of thoracic vertebral bodies and ribs. This could be related to myelofibrosis or metabolic process. Osseous metastasis not definitively excluded. As warranted, could be further evaluated with bone scan or MRI. There is minimal
probably chronic inferior endplate deformity of T1 (as per radiologist's report of Chest CT in the hospital)
Gastroesophageal Reflux Disease
Valvular heart disease: mild to mod AR and mild to mod MR
Condition: Good
Diet: Low Fat, Low Cholesterol and Low Sodium
Activity: As tolerated
Blood Work: CBC, CMP, and Magnesium with your primary care provider's office within 6 to 7 days
Activity Restrictions/Additional Instructions:
For now, do not take any further doses of Orgovyx, since it can contribute to long QTc and arrhythmia -- YOU NEED TO CONTACT YOUR ONCOLOGIST IN 1 TO 2 DAYS TO DISCUSS THE ORGOVYX SITUATION WITH YOUR ONCOLOGIST
Avoid alcohol and NSAIDs type of medication (for example, Ibuprofen, Motrin, Advil, Aleve, etc)
You need an outpatient sleep study
You need to talk to your outpatient doctor about your Right Shoulder Decreased Range of Motion
Remember that you need outpatient cardiac MRI imaging study for the abnormal finding on your echocardiogram
You ABSOLUTELY NEED TO talk to your primary care doctor about aneurysmal dilation of your ascending aorta (4.0 cm in diameter), small right pleural effusion and adjacent atelectasis, trace left pleural effusion and adjacent atelectasis and right
middle lobe 3 mm pulmonary nodule and sclerotic changes of thoracic vertebral bodies and ribs - this could be related to myelofibrosis or metabolic process - osseous metastasis not definitively excluded - as warranted, could be further evaluated
with bone scan or MRI - there is minimal probably chronic inferior endplate deformity of T1 (as per radiologist's report of Chest CT in the hospital)
YOU MUST ASK YOUR OUTPATIENT DOCTORS FOR MORE REFILLS OF ALL OF YOUR MEDICATIONS.
Referrals:
Mt Couch MD [Family Provider, Internal Medicine] - in less than 1 week
Referral Note: Hospitalization Follow-Up
Additional Discharge Medication Instructions: -Your total Metoprolol Succinate dose has been increased and new dose sent to your pharmacy
-Dabigatran 150 mg P.O. BID is a new medication you need to take to prevent strokes from your atrial fibrillation
-Your Hydrochlorothiazide and Amlodipine have been stopped
-For now, do not take any further doses of Orgovyx, since it can contribute to long QTc and arrhythmia -- YOU NEED TO CONTACT YOUR ONCOLOGIST IN 1 TO 2 DAYS TO DISCUSS THE ORGOVYX SITUATION WITH YOUR ONCOLOGIST
Prescriptions:
New
losartan 25 mg Tablet
25 mg PO DAILY Qty: 30 1RF
dabigatran etexilate [Pradaxa] 150 mg Capsule
150 mg PO BID Qty: 60 2RF
pantoprazole 40 mg Tablet,Delayed Release (Dr/Ec)
40 mg PO DAILY Qty: 30 1RF
metoprolol succinate 25 mg Tablet Extended Release 24 Hr
75 mg PO BID 30 Days Qty: 180 2RF
Discontinued
metoprolol succinate 100 mg Tablet Extended Release 24 Hr
100 mg PO DAILY
amlodipine 5 mg Tablet
5 mg PO DAILY
losartan-hydrochlorothiazide 50-12.5 mg Tablet
0.5 tab PO DAILY
Discharge Orders:
Discharge Patient (As Directed); Ordered 08/17/25
Ordered By: Quintin Garrison
Care Plan Goals
Care Plan Goals:
Problem: Readiness for enhanced knowledge related to diagnosis and treatment plan
Goal: Understand your diagnosis and treatment plan needs, including medications if applicable.
Instructions: Know your diagnosis, underlying causes and treatment plan options, including medications if applicable. Consult with your health care team to learn about your diagnosis and treatment plan, including medications if applicable.
Discharge Date and Time
Discharge Date/Time: 08/17/25 16:48
Print Language: ANGOLAN
== END 2025-08-17 16:48 | disposition home or self-care (01) | DRG 309 ==
LOC: IVU 01:58
PROVIDERS: Emergency Medicine; Nurse Practitioner; ADMITTING PHYSICIAN Hospitalist; ATTENDING PHYSICIAN Hospitalist; EMERGENCY PHYSICIAN Emergency Medicine; FAMILY PHYSICIAN Internal Medicine; OTHER PHYSICIAN Internal Medicine Cardiovascular Disease
DX: I48.0 Paroxysmal atrial fibrillation (principal); C79.51 Secondary malignant neoplasm of bone; J90 Pleural effusion, not elsewhere classified; C61 Malignant neoplasm of prostate; I47.20 Ventricular tachycardia, unspecified; F17.290 Nicotine dependence, other tobacco product, uncomplicated; I10 Essential (primary) hypertension; M10.9 Gout, unspecified; I08.0 Rheumatic disorders of both mitral and aortic valves; K21.9 Gastro-esophageal reflux disease without esophagitis; Z79.899 Other long term (current) drug therapy; Z91.148 Patient's other noncompliance with medication regimen for other reason
CPT/HCPCS: 71275; 80048; 80053; 80061; 83735; 83880; 84443; 84484; 85025; 85730; 93005; 93306; 96374; 96375; 96376; 97116; 97162; 97166; 99285; Q9967